=== PATIENT | male | born 1985 | race Asian ===

== ENCOUNTER 2018-05-25 00:02 | Emergency (ER) | payer OTHER ==
[~2018-05-25] VITALS: Ht 177.8 cm; Wt 99.8 kg
[2018-05-25 00:03] VITALS: BP 180/108
--- NOTE | 2018-05-25 00:05 | NUR ---
PT TAKEN TO BED 11
--- NOTE | 2018-05-25 00:10 | NUR ---
33 y/o M presented to ED after blood exposure while at work. Per pt " I was removing an IV from a pt when he pulled on the IV line and his blood splashed in my R eye." Incident occurred 20 minute proir to arrival to ED. Washed eye out for 5 minutes. No redness noted to R eye. No visual changes. denies burning or pain in R eye. Bedrail x1 up. ERMD notified. Will continue to monitor.
[2018-05-25 00:47] VITALS: BP 180/108
--- NOTE | 2018-05-25 00:48 | NUR ---
Patient discharged with v/s stable. Written and verbal after care instructions given and explained. Patient verbalized understanding. Ambulatory with steady gait. All questions addressed prior to discharge. Advised to follow up with PMD.
[2018-05-26 06:21] LABS: HEPATITIS B CORE AB TOTAL Negative (Negative); HEPATITIS B SURFACE ANTIBODY Reactive (.); HEPATITIS B SURFACE ANTIGEN Negative (Negative); HEPATITIS C VIRUS ANTIBODY <0.1 s/co ratio (0.0-0.9)
== END 2018-05-25 00:48 | disposition home or self-care (01) ==
LOC: MED 00:02
DX: Z77.21 Contact with and (suspected) exposure to potentially hazardous body fluids (principal)
CPT/HCPCS: 36415; 86702; 86704; 86706; 86803; 87340; 99283